=== PATIENT | female | born 1965 | race Caucasian/White ===

== ENCOUNTER 2017-11-13 16:33 | Outpatient (CLI) | payer BC ==
--- NOTE | 2017-11-13 16:57 | RAD ---
RIGHT HIP TWO VIEWS: 11/13/17 HISTORY: Right hip pain. FINDINGS/IMPRESSION: There are postop changes withy metallic hardware in the acetabulum. There are mild degenerative ram es in the right hip. No acute fracture or dislocation is identified. POS: [facility]
== END 2017-11-13 16:34 | disposition home or self-care (01) ==
LOC: SCSRAD 16:33
PROVIDERS: ATTEND Family Medicine
DX: M17.11 Unilateral primary osteoarthritis, right knee (principal); Z98.890 Other specified postprocedural states

== ENCOUNTER 2017-12-25 13:29 | Outpatient (CLI) | payer BC | END 2017-12-25 13:30 | disposition home or self-care (01) | LOC: BICMAMMO 13:29 | PROVIDERS: ATTEND Obstetrics & Gynecology | DX: Z12.31 Encounter for screening mammogram for malignant neoplasm of breast (principal); R92.1 Mammographic calcification found on diagnostic imaging of breast; Z80.3 Family history of malignant neoplasm of breast | CPT/HCPCS: 77063; 77067 ==

== ENCOUNTER 2021-03-23 13:53 | Outpatient (CLI) | payer BC ==
[2021-03-23 15:07] LABS: #Eosinphils 0.1 10x3/uL (0.0-0.5); #Monocytes 0.5 10x3/uL (0.0-1.1); #Neutrophils 3.7 10x3/uL (1.5-8.4); %Basophils 0.4 % (0.0-2.0); %Eosinophils 1.2 % (0.0-6.0); %Monocytes 7.3 % (0.0-10.0); Hemoglobin 13.5 g/dL (12.0-15.5); Mean Corpuscular HGB CONC 32.8 g/dL (32.0-36.0); Mean Corpuscular Hemoglobin 29.5 pg (27.0-33.0); Mean Corpuscular Volume 89.7 fl (81.6-98.3); Mean Platelet Volume 10.6 fl (7.4-10.4); Platelet Count 263 10x3/uL (150-450); RBC Distribution Width 12.8 % (11.5-14.5); Red Blood Cell (RBC) Count 4.58 10x6/uL (3.90-5.03); White Blood Cell (WBC) Count 6.9 10x3/uL (3.5-10.5)
[2021-03-23 15:27] LABS: Anion Gap 11 mmol/L (10-20); BUN (Urea Nitrogen) 28 mg/dL (9.8-20.1); Calc. Creatinine Clearance 0 mL/min (70-130); Calcium 11.7 mg/dL (7.8-10.44); Carbon Dioxide 28 mmol/L (22-29); Chloride 105 mmol/L (98-107); Glucose 80 mg/dL (70-105); Potassium 4.4 mmol/L (3.5-5.1); Sodium 140 mmol/L (136-145)
[2021-03-23 15:28] LABS: PTT 25.3 sec (22.0-33.0); Prothrombin Time 10.8 sec (9.5-12.1)
[2021-03-24 01:06] LABS: SARS-CoV-2 PCR by NAA Not Detected (NotDetected)
== END 2021-03-23 13:54 | disposition home or self-care (01) ==
LOC: LABBT 13:53
PROVIDERS: ATTEND Orthopaedic Surgery
DX: Z01.818 Encounter for other preprocedural examination (principal); M16.51 Unilateral post-traumatic osteoarthritis, right hip; Z20.822 Contact with and (suspected) exposure to COVID-19
CPT/HCPCS: 80048; 85025; 85610; 85730; 87081; 93005; 93010; U0003; U0005

== ENCOUNTER 2021-03-28 05:43 | Day surgery (SDC) | payer BC ==
[2021-03-27 15:45] VITALS: BMI 23.3
[2021-03-28] MEDS ORDERED: Tranexamic Acid 1,000 MG/10 ML VIAL ONE (06:06)
[2021-03-28] MEDS ORDERED: Sodium Chloride 0.9% 100 ML ONE (06:06)
[2021-03-28] MEDS ORDERED: Fentanyl 100 MCG/2 ML VIAL ONE ×2 (06:06→06:34)
[2021-03-28] MEDS ORDERED: Vancomycin 1 GM/200 ML BAG ONE (06:06)
[2021-03-28] MEDS ORDERED: ceFAZolin 2 GM/DEX 5% 100 ML BAG ONE (06:06)
[2021-03-28] MEDS ORDERED: Midazolam HCl 2 mg/2 ml Vial ONE (06:34)
[2021-03-28] MEDS ORDERED: Dexamethasone 4 mg/ml Vial ONE (06:35)
[2021-03-28] MEDS ORDERED: Lidocaine 1% (PF) 30 ML VIAL ONE (06:35)
[2021-03-28] MEDS ORDERED: Propofol 1,000 MG/100 ML VIAL IV ONE (06:48)
[2021-03-28] MEDS ORDERED: Propofol 500 MG/50 ML VIAL ONE (06:48)
[2021-03-28] MEDS ORDERED: ePHEDrine 50 MG/ML VIAL ONE (07:05)
[2021-03-28] MEDS ORDERED: Ondansetron PF 4 MG/2 ML Vial ONE (07:05)
[2021-03-28] MEDS ORDERED: Lidocaine 1% PF 5 ML VIAL ONE (07:05)
[2021-03-28] MEDS ORDERED: Ketorolac Tromethamine 30 MG/ML VIAL ONE (07:05)
[2021-03-28] MEDS ORDERED: PHENYLEPHRINE-NS 100 MCG/ML 10 ML SYRINGE ONE (07:05)
[2021-03-28] MEDS ORDERED: Bupivacaine HCl 0.5%/Epinephrine 1:200,000/PF 30 ml Vial ONE (07:05)
[2021-03-28] MEDS ORDERED: EPINEPHrine 1 MG/10 ML Abboject SYRINGE ONE ×2 (07:05→07:06)
[2021-03-28] MEDS ORDERED: Dexamethasone 20 MG/5 ML VIAL ONE ×2 (07:05)
[2021-03-28] MEDS ORDERED: Bupivacaine PF 0.5% 30 ML VIAL ONE (07:45)
== END 2021-03-28 13:30 | disposition home or self-care (01) ==
LOC: SDC 05:43
PROVIDERS: ATTEND Orthopaedic Surgery
PROC: 0SR904A Replacement of Right Hip Joint with Ceramic on Polyethylene Synthetic Substitute, Uncemented, Open Approach (ICD-10-PCS; principal; 2021-03-28)
PROC: 3E0T3BZ Introduction of Anesthetic Agent into Peripheral Nerves and Plexi, Percutaneous Approach (ICD-10-PCS; principal; 2021-03-28)
DX: M16.51 Unilateral post-traumatic osteoarthritis, right hip (principal); M25.561 Pain in right knee; Z79.899 Other long term (current) drug therapy; Z91.018 Allergy to other foods
CPT/HCPCS: J0171; J1100; J1885; J2001; J2250; J2405; J2704; J3010; J3370; J3490; S0020